=== PATIENT | female | born 1995 | race Caucasian/White ===

== ENCOUNTER → 2020-07-03 10:53 | Outpatient (CLI) | payer OTHER, SELFPAY ==
[2020-07-03 23:32] LABS: SARS-CoV-2 RNA PCR Negative
== END ==
PROVIDERS: Visit Provider Obstetrics & Gynecology
DX: Z01.812 Encounter for preprocedural laboratory examination (principal); Z20.822 Contact with and (suspected) exposure to COVID-19
CPT/HCPCS: C9803; U0003; U0005

== ENCOUNTER 2020-07-06 00:50 | Day surgery (SDC) | payer BC, OTHER, SELFPAY ==
--- NOTE | 2020-07-03 12:42 | PM.IMHP ---
H&P: HPI History of Present Illness Date/Time: 07/03/20 12:42 Chief Complaint: incomplete ab Narrative: Tonia Corcoran is a 25 year old female admitted with incomplete 1st trimester AB. Center gone 1 previous vaginal delivery. She had ultrasound proven abnormal . Risks and benefits reviewed including but not exclusive of , aspiration pneumonia, bleeding, transfusion, for [place] in October perforation injury to bowel, bladder, ureters, other internal organs with need for laparotomy. She voiced good understanding. She had all questions answered. She asked to proceed Review of Systems Review of Systems: All systems reviewed & are unremarkable except as noted in HPI and below PMFSH Past Medical History Medical History Scoliosis Spina bifida Social History Social History Smoking status: Former smoker Tobacco type: cigarettes Additional smoking assessment comments: pt states that she tried smoking one time when she was younger Meds Home Medications and Allergies Home Medications Medication Instructions Recorded Confirmed Type acyclovir 400 mg PO 0900,1300,2100 #21 tablet 03/24/19 Rx ibuprofen 600 mg PO Q6H PRN #30 tablet 03/24/19 Rx Allergies Allergy/AdvReac Type Severity Reaction Status Date / Time No Known Allergies Allergy Unverified 07/06/17 10:59 Exam Const: General: no acute distress Eyes: General: appearance normal, both eyes and all related structures Neck: Neck: supple and no JVD Thyroid: thyroid normal Resp: Effort & Inspection: normal respiratory effort Auscultation: clear to auscultation bilaterally Cardio: Rate: regular rate Rhythm: regular rhythm GI: Inspection: non-distended GI Palp: Yes Soft to palpation, No Tenderness to palpation present (GI) and No Guarding due to palpation present (GI) Auscultation: normal bowel sounds : General: Yes bladder normal to inspection External Female Exam: normal external appearance Speculum Exam - Vagina: vaginal bleeding Speculum Exam - Cervix: Cervical os closed Bimanual exam- vagina & uterus: enlarged Skin: General skin exam: no rashes or lesions noted Extrem: General: normal to inspection and no edema Psych: Mental Status: mental status grossly normal Affect: normal affect Assessment and Plan Additional Plan impression: 1St trimester incomplete AB Plan: The. The suction dilatation curettage
[2020-07-03 15:01] VITALS: BMI 41.8
--- NOTE | 2020-07-06 07:03 | WPDHPUPDATE1 ---
History and Physical Update Update Date/Time: 07/06/20 07:03 History and Physical has been reviewed, including an updated exam of the patient. There are NO changes in the patient's condition. Risks, benefits, and alternatives have been discussed and questions answered. Patient agrees to proceed with procedure.
[2020-07-06 12:21] VITALS: BP 144/71; PULSE 94; RESP 18; TEMP 36.4; O2SAT 100
--- NOTE | 2020-07-06 12:55 | WPDANESEPPF ---
Anes - Initial Pre Proc Eval Procedure: Operation Date: 07/06/20 14:15 Proposed Procedures p Suction Dilatation And Curettage - Jitendra Gaffney MD Date/Time: 07/06/20 12:55 Surgeon: Jitendra Gaffney MD Pre Op Diagnosis: missed AB Patient Data Age: 25 Gender: F Height: 4 ft 11 in Weight: 94 kg Allergies Allergy/AdvReac Type Severity Reaction Status Date / Time No Known Allergies Allergy Unverified 07/06/20 12:44 Home Medications Medication Instructions Recorded Confirmed Type hydrocodone-acetaminophen 1 tablet PO Q6H PRN #20 tablet 07/06/20 Rx Patient hx anesthesia problems: none Family hx anesthesia problems: none PMFSH Past Medical History Medical History Scoliosis Spina bifida Social History Social History Smoking status: Never smoker Tobacco type: cigarettes Second hand tobacco smoke exposure: No Additional smoking assessment comments: pt states that she tried smoking one time when she was younger Alcohol intake: former Substance use: never Living arrangements: with family Anes - Eval Final PreProcedure Day of Procedure 07/06/20 12:55 Patient weight: morbidly obese Heart: regular rate and rhythm Lungs: clear to auscultation Airway: Mallampati scale class II Neurological: alert and oriented Last oral intake: >/= 8 hours ASA classification: III Emergent: no Anesthetic plan: proceed Anesthesia type and monitoring: general GIVS and standard monitoring Informed Consent: The patient's anesthetic plan and its attendant risks and benefits were discussed with the patient/family/POA. Questions were solicited and answers provided to the satisfaction of the patient/family/POA.
--- NOTE | 2020-07-06 14:20 | PM.PROC ---
Procedure Note - Detailed Date of procedure: 07/06/20 Pre-op diagnosis: missed AB Surgeon: Jitendra Gaffney MD Postop diagnosis missed AB Procedure: Suction dilatation curettage Anesthesia: IV sedation and local EBL: 25cc Complications: None Findings: Tissue consistent with products of conception Description of procedure: The patient was prepped draped in normal sterile fashion placed in the dorsal lithotomy position. Under excellent IV sedation weighted speculum was placed in posterior fornix vagina. Anterior lip of the cervix grasped with a single-tooth tenaculum and 2.5cc of 1% xylocaine anesthesia placed at 2, 4, 8, 10:00 a.m. of the cervix. Uterus sounded 10cm. Serial dilatation with fragmented dilators performed followed by passes the 10. Suction curette. A large amount of placental tissue was removed. When a good grating sound was heard the instruments removed. Blood loss was estimated 25cc. All sponge, needle, instrument count were correct. There were no immediate complications
[2020-07-06 14:24] VITALS: BP 137/56; PULSE 80; RESP 14; O2SAT 100
[2020-07-06] MEDS: LACTATED RINGERS 1,000 ML 30 ML IV CONT (14:24)
--- NOTE | 2020-07-06 14:29 | SUR.OPER ---
ebl 25ML
[2020-07-06 14:50] VITALS: BP 133/70; PULSE 75; RESP 14
[2020-07-06] MEDS: oxyCODONE HCL (*CRX) 5 MG TAB IR PO (14:55)
[2020-07-06 15:15] VITALS: BP 131/49; PULSE 72; RESP 14
== END 2020-07-06 15:32 | disposition home or self-care (01) ==
PROVIDERS: Visit Provider Obstetrics & Gynecology
PROC: (CPT 59820; principal; 2020-07-06 14:15)
DX: O02.1 Missed abortion (principal)
CPT/HCPCS: 59820; 88305; A9270; C9803; J2250; J2405; J2704; J3010; J7120; U0003; U0005

== ENCOUNTER 2021-12-30 10:01 | Outpatient (RCR) | payer OTHER, SELFPAY ==
[2021-11-14 18:50] VITALS: BP 115/64; PULSE 96
[2021-11-25 09:44] VITALS: BP 114/58; PULSE 71
[2021-12-02 10:33] VITALS: BP 122/71; PULSE 109
[2021-12-09 10:29] VITALS: BP 122/71; PULSE 107
[2021-12-16 10:28] VITALS: PULSE 89
--- NOTE | 2021-12-25 09:40 | PC.NURSE ---
Pt placed on droplet isolation due to known COVID positive status. Pt here for NST.
--- NOTE | 2021-12-25 11:35 | PC.NURSE ---
Dr. Ja Rodas informed this pt who has a history of a 2 vessel cord came in for NST today due to decreased movement. Pt did test positive for COVID on 12/22/21. Pt also c/o itching in palms of hands and soles of feet. No jaundice visible. Orders received.
[2021-12-25 12:00] VITALS: BP 121/71; PULSE 99
[2021-12-25 12:15] LABS: Alanine Aminotransferase 139 U/L (6-35); Albumin Level 3.2 g/dL (3.5-5.1); Alkaline Phosphatase 156 U/L (38-126); Anion Gap 5 mmol/L (8-16); Aspartate Amino Transferase 59 U/L (14-36); Bilirubin,Total 0.6 mg/dL (0.2-1.3); Blood Urea Nitrogen 6 mg/dL (7-17); Calcium 9.1 mg/dL (8.4-10.2); Carbon Dioxide 27 mmol/L (22-30); Chloride 103 mmol/L (98-107); Estimated Glomerular Filt Rate > 60; Glucose 121 mg/dL (65-110); Potassium 4.6 mmol/L (3.4-5.0); Sodium 135 mmol/L (137-145)
--- NOTE | 2021-12-25 13:35 | PC.NURSE ---
Dr. Ja Rodas informed of CMP results with elevated liver enzymes. Order received to add uric acid. Pt informed no change in plan of care at this time. To keep office appointment on Thursday. To come back if she should start noticing any yellowing of skin or eyes- pt verbalizes understanding.
[2021-12-25 14:24] LABS: Uric Acid 4.3 mg/dL (2.5-7.5)
[2021-12-30 10:51] VITALS: BP 121/77; PULSE 101
[2022-01-01 15:57] LABS: Chenodeoxycholic Acid 7.8 umol/L (< OR = 3.9); Cholic Acid 29.8 umol/L (< OR = 2.8); Deoxycholic Acid 5.1 umol/L (< OR = 2.3); Total Bile Acids 42.7 umol/L (< OR = 8.3)
== END 2022-01-29 10:11 | disposition home or self-care (01) ==
LOC: ANHOBOP 10:01
PROVIDERS: Visit Provider Obstetrics & Gynecology
DX: O36.8130 Decreased fetal movements, third trimester, not applicable or unspecified (principal); Z3A.31 31 weeks gestation of pregnancy; Z3A.32 32 weeks gestation of pregnancy; Z3A.35 35 weeks gestation of pregnancy; Z3A.37 37 weeks gestation of pregnancy
CPT/HCPCS: 36415; 59025; 80053; 82542; 84550

== ENCOUNTER 2022-01-08 15:58 | Inpatient (IN) | payer OTHER, SELFPAY ==
[2022-01-08] VITALS (7 sets, daily range): BP systolic 123–128; BP diastolic 50–82; PULSE 83–107; RESP 16; TEMP 35.9–36.4; BMI 38.7
--- NOTE | 2022-01-08 16:17 | LDADM ---
This patient, Tonia Corcoran, was admitted to Labor/Delivery/Recovery 108 on 01/08/22 at 15:58. Plans for labor, pain management and were discussed with patient. Patient/family oriented to hospital policies and general routines including ID bracelet, bed and alarms, visiting hours, pain management, procedures, bathroom and other care routines, personal items, smoking policy, room service/diet and guest tray routines, infant security routines, and visiting hours. Patient/Family are encouraged to report perceived risks to care and to ask questions if they do not understand what they are told or what they should do. See OBIX for further documentation.
[2022-01-08 16:39] LABS: Basophils Percent Auto 0.1 % (0.2-1.2); Eosinophils Absolute Auto 0.1 K/mm3 (0-0.3); Eosinophils Percent Auto 1.2 % (0-4.4); Hematocrit 34.2 % (37.0-47.0); Hemoglobin 11.3 g/dL (12.0-15.0); Immature Granulocyte Absolute 0.03 K/mm3 (0.00-0.031); Immature Granulocyte Percent A 0.4 % (0-0.5); Lymphocytes Absolute Auto 1.06 K/mm3 (0.9-3.2); Lymphocytes Percent Auto 14.5 % (18.3-44.2); Mean Corpuscular Hemoglobin 29.1 pg (26-34); Mean Corpuscular Volume 88.1 fl (80-100); Mean Platelet Volume 11.2 fl (7.4-10.4); Monocytes Absolute Auto 0.5 K/mm3 (0.1-0.6); Monocytes Percent Auto 7.4 % (2.6-8.5); Neutrophils Absolute Auto 5.6 K/mm3 (1.3-6.7); Neutrophils Percent Auto 76.4 % (45.5-73.1); Platelet Count Result 277 k/mm3 (150-375); Red Blood Count 3.88 M/mm3 (4.2-5.4); Red Cell Distribution Width 14.2 % (11.5-14.5); White Blood Count 7.3 K/mm3 (4.5-10.0)
[2022-01-08] MEDS: DINOPROSTONE 10 MG VAG INSERT VAGINAL (16:49)
--- NOTE | 2022-01-08 17:29 | P.PNAN_ITS ---
Anes - Eval Pre Procedure Procedure: labor epidural Date/Time: 01/08/22 17:29 Surgeon: rasta Preop Diagnosis: pain during labor Pre Op Diagnosis: iol Patient Data Age: 26 Gender: F Height: 1.5 m Weight: 87 kg Last Vital Signs Temp 36.3 C L 01/08/22 16:40 Pulse 107 H 01/08/22 16:22 BP 128/76 01/08/22 16:22 O2 Del Method Room Air 01/08/22 16:16 Allergies Allergy/AdvReac Type Severity Reaction Status Date / Time No Known Allergies Allergy Verified 12/30/21 14:33 Home Medications Medication Instructions Recorded Confirmed Type prenat.vits,soniya,mxv-izeh-pbtds 1 tablet PO DAILY 12/30/21 12/30/21 History Laboratory Tests 01/08/22 01/08/22 16:31 16:31 WBC 7.3 K/mm3 K/mm3 (4.5-10.0) RBC 3.88 M/mm3 L M/mm3 (4.2-5.4) Hgb 11.3 g/dL L g/dL (12.0-15.0) Hct 34.2 % L % (37.0-47.0) MCV 88.1 fl fl (80-100) MCH 29.1 pg pg (26-34) MCHC 33.0 g/dl g/dl (32-36) RDW 14.2 % % (11.5-14.5) Plt Count 277 k/mm3 k/mm3 (150-375) MPV 11.2 fl H fl (7.4-10.4) Immature Gran % (Auto) 0.4 % % (0-0.5) Neut % (Auto) 76.4 % H % (45.5-73.1) Lymph % (Auto) 14.5 % L % (18.3-44.2) [place] % (Auto) 7.4 % % (2.6-8.5) Eos % (Auto) 1.2 % % (0-4.4) Baso % (Auto) 0.1 % L % (0.2-1.2) Lymph # (Auto) 1.06 K/mm3 K/mm3 (0.9-3.2) [place] # (Auto) 0.5 K/mm3 K/mm3 (0.1-0.6) Eos # (Auto) 0.1 K/mm3 K/mm3 (0-0.3) Baso # (Auto) 0.0 K/mm3 K/mm3 (0.0-0.1) Abs Immat Gran (auto) 0.03 K/mm3 K/mm3 (0.00-0.031) Absolute Neuts (auto) 5.6 K/mm3 K/mm3 (1.3-6.7) Absolute Nucleated RBC 0.0 K/mm3 K/mm3 (0.0-0.012) Nucleated RBC % 0.0 % % (0.0-0.2) RPR Pending Patient hx anesthesia problems: none Family hx anesthesia problems: none Results Review: All pre-operative results and documents have been reviewed as part of the pre- operative evaluation. [facility] Past Medical History Medical History Scoliosis Spina bifida Family History Family History (Updated 12/30/21 @ 14:36 by Ai Zavala RN) Grandparent Heart disease Mother H/O heart surgery Social History Social History Smoking status: Never smoker Tobacco type: cigarettes Second hand tobacco smoke exposure: No Additional smoking assessment comments: pt states that she tried smoking one time when she was younger Alcohol intake: former Substance use: never Spiritual care concerns: No Exam Day of Procedure 01/08/22 17:29
[2022-01-09] VITALS (105 sets, daily range): BP systolic 96–136; BP diastolic 44–98; PULSE 73–134; RESP 14–16; TEMP 36.4–37.4; O2SAT 95–100
[2022-01-09] MEDS: LACTATED RINGERS 1,000 ML 125 ML IV CONT ×2 (06:00→11:28)
[2022-01-09] MEDS: OXYTOCIN 30 UNITS/NS 500 ML 30 UNITS/500 ML BAG IV CONT (06:00)
[2022-01-09 07:55] LABS: Rapid Plasma Reagin Non-Reactive (NonReactive)
--- NOTE | 2022-01-09 09:56 | PM.IMHP ---
H&P: HPI History of Present Illness Date/Time: 01/09/22 09:56 Chief Complaint: Term Narrative: this is a 27-year-old 3 para 1 whose last menstrual period was 04/26/2021, EDC is 01/15/2022, with known 2 vessel cord admitted at 39 weeks gestation for induction of labor. She had some elevated bile acids with her of itching consistent with the cholestasis of . Blood pressures have been mildly elevated as well. [facility] Past Medical History Medical History Scoliosis Spina bifida Family History Family History Grandparent Heart disease Mother H/O heart surgery Social History Social History Smoking status: Never smoker Tobacco type: cigarettes Second hand tobacco smoke exposure: No Additional smoking assessment comments: pt states that she tried smoking one time when she was younger Alcohol intake: former Substance use: never Spiritual care concerns: No Meds Home Medications and Allergies Home Medications Medication Instructions Recorded Confirmed Type prenat.vits,soniya,krp-cpyt-xrbzq 1 tablet PO DAILY 12/30/21 12/30/21 History Allergies Allergy/AdvReac Type Severity Reaction Status Date / Time No Known Allergies Allergy Verified 12/30/21 14:33 Vital Signs Vital Signs - 24 hr 01/08/22 16:16 01/08/22 16:22 01/08/22 16:40 Temperature 97.4 F L Pulse Rate 107 H Respiratory Rate Blood Pressure 128/76 Oxygen Delivery Room Air 01/08/22 19:12 01/08/22 18:30 01/08/22 23:35 Temperature 97.5 F L Pulse Rate 106 H 83 Respiratory Rate 16 Blood Pressure 123/82 125/50 L Oxygen Delivery 01/09/22 02:33 01/09/22 05:50 01/09/22 06:00 Temperature Pulse Rate 94 102 H 102 H Respiratory Rate Blood Pressure 120/73 119/77 126/69 Oxygen Delivery 01/09/22 06:16 01/09/22 06:30 01/08/22 20:30 Temperature 97.6 F Pulse Rate 93 90 Respiratory Rate Blood Pressure 117/76 117/73 Oxygen Delivery 01/08/22 22:30 01/09/22 00:30 01/09/22 02:30 Temperature 96.7 F L 97.5 F L 97.5 F L Pulse Rate Respiratory Rate Blood Pressure Oxygen Delivery 01/09/22 04:30 01/09/22 06:45 01/09/22 07:01 Temperature 97.7 F Pulse Rate 93 82 Respiratory Rate Blood Pressure 121/78 118/60 Oxygen Delivery 01/09/22 07:15 01/09/22 07:30 01/09/22 07:46 Temperature Pulse Rate 91 90 86 Respiratory Rate Blood Pressure 112/61 126/63 123/68 Oxygen Delivery 01/09/22 08:00 01/09/22 08:15 01/09/22 08:31 Temperature Pulse Rate 90 98 97 Respiratory Rate Blood Pressure 119/60 127/78 122/69 Oxygen Delivery 01/09/22 08:37 01/09/22 08:45 01/09/22 09:01 Temperature 97.9 F Pulse Rate 100 115 H Respiratory Rate Blood Pressure 127/71 113/55 L Oxygen Delivery 01/09/22 09:18 01/09/22 09:31 01/09/22 09:46 Temperature Pulse Rate 102 H 125 H 96 Respiratory Rate Blood Pressure 117/65 135/98 H 119/77 Oxygen Delivery Exam Const: General: cooperative and healthy appearing Nutritional Appearance: average body habitus Orientation/consciousness: oriented to person, oriented to place and oriented to time Chest: Chest palpation & inspection: normal inspection of the chest Resp: Effort & Inspection: normal respiratory effort Cardio: Rate: regular rate Rhythm: regular rhythm Heart sounds: S1 normal heart sound present and S2 normal heart sound present GI: Auscultation: normal bowel sounds : External Female Exam: normal external appearance Speculum Exam - Cervix: normal appearance of the cervix ( Cervix 3/75/1. AROM clear. FHTs reassure) Bimanual exam- vagina & uterus: enlarged ( gravid soft uterus.) H&P: Results Labs Labs: Short CBC 01/08/22 Range/Units 16:31 WBC 7.3 (4.5-10.0) K/mm3
[2022-01-09] MEDS: fentaNYL CITRATE INJ (*CRX) 100 MCG/2 ML VIAL 50 MCG IV PUSH (12:24)
--- NOTE | 2022-01-09 13:43 | PM.OBPRVD ---
OB - Delivery Note Procedure Delivery date: 01/09/22 Procedure: mil Events: Other (2 vessel cord) Induction method: Per Cervidil Protocol Delivery augmentation: Rupture of Membranes and Pitocin Delivery monitor: External FHT Route of delivery: Episiotomy description: None Laceration Description: None Quantitative Blood Loss (ml): 59 Anesthesia type: Epidural Disposition: Floor Baby Date of : 01/09/22 Time of : 13:35 Weeks of gestation at delivery: 39 Infant gender: Male presentation: vertex position: Right Occiput Anterior Placenta delivery description: Spontaneous Cord Vessel Description: 2 Vessels score one minute: 8 score five minutes: 9
[2022-01-09] MEDS: OXYTOCIN 30 UNITS/NS 500 ML 30 UNITS/500 ML BAG 125 UNITS IV CONT (14:02)
--- NOTE | 2022-01-09 16:16 | OBPPTRN ---
Patient transferred to post room #285 via wheelchair. Support person present. Oriented to unit, room, information board, rooming in, admission packet and security measures. Patient verbalizes understanding.
[2022-01-09] MEDS: IBUPROFEN 600 MG TABLET PO (16:44)
[2022-01-09] MEDS: DOCUSATE SODIUM 100 MG CAPSULE PO (16:44)
[2022-01-09] MEDS: ACETAMINOPHEN 325 MG TABLET 650 MG PO (19:52)
[2022-01-10 04:00] VITALS: BP 109/61; PULSE 93; RESP 18; TEMP 36.8; O2SAT 98
[2022-01-10] MEDS: IBUPROFEN 600 MG TABLET PO ×3 (04:32→21:38)
[2022-01-10 05:29] LABS: Hematocrit 30.8 % (37.0-47.0)
[2022-01-10 07:55] VITALS: BP 123/58; PULSE 74; RESP 18; TEMP 36.6; O2SAT 98
--- NOTE | 2022-01-10 08:14 | PM.OBPNVD ---
OB - PN: Subj Subjective Date/time seen: 01/10/22 08:14 Patient comments: no complaints and pain well controlled baby status: doing well OB - PN: Obj Data Labs CBC & Chem 7: 01/10/22 04:49 Labs: Laboratory Results - last 24 hr 01/10/22 04:49 Hgb 10.0 L Hct 30.8 L OB - PN A/P Plan day: 1 Plan: routine care Time Spent With Patient Time: Total time spent is greater than 50% in coordination of care (as documented) at patient's floor/unit and/or counseling patient: Time with patient: less than 15 minutes
--- NOTE | 2022-01-10 10:06 | PC.NURSE ---
Addendum entered by Tita Johnston RN 01/10/22 10:07: We did discuss the tongue tie and reviewed pumping 8-12 times in 24 hours 15-20 min with 1-2 times at night for a good milk supply. Mother voiced information as familiar having discussed it with another nurse. Original Note: 0939 - Introductions were made, then consulted with patient to assess needs related to . Mother led the conversation with her?plans to feed?her and the?experience so far. Resources provided for inpatient and outpatient services using a resource guide and mom/baby guide. Mother voiced understanding of information, states her nurse last night gave her great tips and will call if there is a request for assistance.
--- NOTE | 2022-01-10 11:09 | WPDANLDPN2 ---
Anes-Prog Note L&D Date/Time: 01/10/22 11:09 Comfortable throughout: labor and delivery Neuraxial method: epidural Epidural/Spinal procedure site: clean & non-tender Neuro status: Neuro function grossly intact. Cardiovascular status: normal Respiratory status: normal Airway patency: baseline Mental status: baseline Post-Op hydration status: normal Vital Signs: Last Vital Signs Temp 36.6 C 01/10/22 07:55 Pulse 74 01/10/22 07:55 Resp 18 01/10/22 07:55 BP 123/58 L 01/10/22 07:55 Pulse Ox 98 01/10/22 07:55 O2 Del Method Room Air 01/09/22 19:45 Pain score (VAS): 1 I/O: Intake & Output 01/09/22 01/10/22 01/10/22 23:59 07:59 15:59 Intake Total 980 Output Total 83 Balance 897 Patient feedback: Patient satisfied with anesthetic care.
[2022-01-10] MEDS: MULTIVIT/MIN/PREN/FOL AC/IRON TABLET 1 TAB PO (11:13)
[2022-01-10 12:06] VITALS: BP 122/58; PULSE 76; RESP 18; TEMP 36.5; O2SAT 99
[2022-01-10 21:00] VITALS: BP 114/93; PULSE 76; RESP 16; TEMP 36.6; O2SAT 99
[2022-01-10] MEDS: DOCUSATE SODIUM 100 MG CAPSULE PO (21:38)
[2022-01-11] MEDS: ACETAMINOPHEN 325 MG TABLET 650 MG PO (00:34)
--- NOTE | 2022-01-11 05:50 | PM.DS ---
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 Hospital Course: She underwent spontaneous vaginal delivery. Her 48hour course was unremarkable. She was ,, ambulating, voiding without difficulty, and general without complaints. Time Spent with Patient Time attestation: Total time spent providing and/or coordinating discharge services: DS: Data Data Completed and Pending Pending studies at discharge: Pending at discharge 01/09/22 13:38 Surgical [PTH] Routine Discharge Plan Discharge Attending physician on discharge: Jitendra Mena Discharging Clinician: Jitendra Mena Patient Disposition: Home, Self-Care Activity: may shower, no straining and pelvic rest Diet: heart healthy Wound Care Instructions: follow printed instructions Patient Instructions: Antibiotic Form Stand Alone Forms: General Discharge Information Follow-up/Referrals: Jitendra Mena MD [Physician] - Discharge Medications: Continued #2 Tablet 1 tablet PO DAILY Date of admission: 01/08/22 15:58 Primary Care Provider: PHYSICIAN,HEREDITARY CANCER PROGRAM COORDINATOR Admitting Provider: Jitendra Mena Attending physician on admission: Jitendra Mena Condition: Stable
[2022-01-11] MEDS: DOCUSATE SODIUM 100 MG CAPSULE PO (08:21)
[2022-01-11] MEDS: IBUPROFEN 600 MG TABLET PO (08:21)
[2022-01-11] MEDS: MULTIVIT/MIN/PREN/FOL AC/IRON TABLET 1 TAB PO (08:22)
[2022-01-11 08:45] VITALS: BP 139/54; PULSE 73; RESP 18; TEMP 36.7; O2SAT 100
--- NOTE | 2022-01-11 13:00 | PC.NURSE ---
Patient viewed the discharge video Mother & Baby Care, The First Two Weeks . Patient was given the opportunity and encouraged to ask questions. Patient verbalized understanding of information shared and has been given the mother/baby guide for home reference.
[2022-01-13 10:38] VITALS: BP 122/67; PULSE 65; RESP 20; TEMP 36.7; O2SAT 100
== END 2022-01-11 13:15 | disposition home or self-care (01) | DRG 807 ==
LOC: ANHLDR 01-09 08:48 → ANHOB2 01-09 16:28
PROVIDERS: Admitting Provider Obstetrics & Gynecology; Visit Provider Obstetrics & Gynecology
DX: O13.4 Gestational [pregnancy-induced] hypertension without significant proteinuria, complicating childbirth (principal); Z37.0 Single live birth; O69.89X0 Labor and delivery complicated by other cord complications, not applicable or unspecified; Z3A.39 39 weeks gestation of pregnancy; O99.892 Other specified diseases and conditions complicating childbirth; M41.9 Scoliosis, unspecified; Q05.9 Spina bifida, unspecified
CPT/HCPCS: 36415; 85014; 85018; 85025; 86592; 86850; 86900; 86901; 88307; A9270; J2590; J2795; J3010; J7120